=== PATIENT | male | born 1965 | race Two or more races ===

== ENCOUNTER 2023-01-01 13:38 | Inpatient (IN) | payer MEDICARE, OTHER ==
[~2023-01-01] VITALS: Ht 170.2 cm; Wt 64.4 kg
[2023-01-01] MEDS ORDERED: IV NS 0.9% 1,000 ML BAG IV ONE (14:00)
--- NOTE | 2023-01-01 14:42 | NUR ---
PT IN BED 6 A/O X3 NO S/S OF DISTRESS. C/O WEAKNESS HAVING TROUBLE WITH BOWEL EMPTYING AND POOR DIET PT ENDORSES FEELING NAUSEOUS 3 DAYS AGO. PT CONNECTED TO BEDISDE MONITOR AND PUT ON NS DRIP.
--- NOTE | 2023-01-01 14:45 | NUR ---
20G STARTED IN RAC BLOOD DRAWN AND SENT TO LAB
--- NOTE | 2023-01-01 14:46 | NUR ---
PT PROVIDED WITH URINAL AWAITING URINE SAMPLE.
[2023-01-01 14:51] LABS: BASOPHILS % (AUTO) 0.4 % (0.0-2.0); EOSINOPHILS % (AUTO) 2.2 % (0.0-6.0); HEMATOCRIT 43 % (39-51); LYMPHOCYTES # (AUTO) 1.9 K/uL (0.8-4.8); LYMPHOCYTES % (AUTO) 20.2 % (20.0-44.0); MEAN CORPUSCULAR HGB CONC 33 g/dl (31.0-36.0); MEAN CORPUSCULAR VOLUME 95 fL (80-96); MONOCYTES # (AUTO) 0.7 K/uL (0.1-1.30); NEUTROPHILS # (AUTO) 6.6 K/uL (1.8-8.9); NEUTROPHILS % (AUTO) 70.2 % (43.0-81.0); PLATELET COUNT (AUTO) 249 K/uL (150-450); RED BLOOD CELL COUNT(AUTO) 4.46 MIL/uL (4.5-6.0); WHITE BLOOD COUNT (AUTO) 9.4 K/uL (4.3-11.0)
--- NOTE | 2023-01-01 14:57 | NUR ---
COVID SWAB COLLECTED AND SENT TO LAB
[2023-01-01 15:12] LABS: ALBUMIN 3.8 g/dL (3.4-5.0); BILIRUBIN,DIRECT 0.1 mg/dL (0.0-0.2); BILIRUBIN,TOTAL 0.4 mg/dL (0.2-1.0); CALCIUM, SERUM 8.9 mg/dL (8.5-10.1); CREATININE 1.4 mg/dL (0.6-1.3); POTASSIUM 3.8 mmol/L (3.5-5.1); TOTAL PROTEIN, SERUM 7.1 g/dL (6.4-8.2)
--- NOTE | 2023-01-01 15:43 | NUR ---
CALLED KIMBERLY HERNANDEZ REGARDING PT BED
--- NOTE | 2023-01-01 15:51 | NUR ---
MSRA SWAB DONE SENT TO LAB
--- NOTE | 2023-01-01 16:10 | NUR ---
URINE COLLECTED SENT TO LAB
--- NOTE | 2023-01-01 16:10 | NUR ---
urine collected and sent to lab.
--- NOTE | 2023-01-01 16:11 | NUR ---
covid swab collected and sent to lab
--- NOTE | 2023-01-01 16:20 | NUR ---
PT GIVEN SOME FOOD COKE IN CANS AND SANDWICH
--- NOTE | 2023-01-01 16:32 | NUR ---
BED GIVEN 309-2
--- NOTE | 2023-01-01 16:42 | NUR ---
PT SAILAJA ESPINOSA RN BED 309 FOR CONTINUATION OF CARE
[2023-01-01 16:58] LABS: BILIRUBIN,URINE NEGATIVE (NEGATIVE); COLOR,URINE YELLOW (YELLOW); LEUKOCYTE ESTERASE ,URINE NEGATIVE (NEGATIVE); NITRITE, URINE NEGATIVE (NEGATIVE); PROTEIN,URINE NEGATIVE (NEGATIVE); UGLUCOSE NEGATIVE (NEGATIVE); UROBILINOGEN,URINE 0.2 EU/dL (0.2)
[2023-01-01] MEDS ORDERED: MAGNESIUM HYDROXIDE 30 ML UDC PO PRN (17:30)
[2023-01-01] MEDS ORDERED: HYDROCODONE/APAP 5/325MG TABLET PO PRN (17:30)
[2023-01-01] MEDS ORDERED: Z GUARD REMEDY 4 OZ OINT TP PRN (17:30)
[2023-01-01] MEDS ORDERED: ACETAMINOPHEN 325 MG TABLET PO PRN (17:30)
[2023-01-01] MEDS ORDERED: ONDANSETRON HCL/PF 4 MG/2 ML VIAL IVP PRN (17:30)
[2023-01-01] MEDS ORDERED: MAG HYDROX/AL HYDROX/SIMETH 30 ML UDC PO PRN (17:30)
--- NOTE | 2023-01-01 17:43 | NUR ---
MS AVICULTURIST NOTE (3 WEST) Patient arrived to Room 309 - bed 2, via gurney from the ED, alert, oriented x 2 with confusion, calm, cooperative, able to make needs known with clear speech, follows commands. Patient oriented to unit and safety protocols. Safety from fall precautions in place: bed in lowest position; two bed side rails up; bed brake locked on; bed alarm on; call bernal/light within patient's reach. Patient breathing is even, regular without distress,on room air, denies pain at the moment, and VS stable. Patient has # 20 gauge PIV catheter to right antecubital space that is clean, dry, intact, and patent flushing without resistance. New order for IV fluid of 1/2 NS to infuse at rate of 75 mLs/hr, will connect to patient. Will continue to monitor and care for patient per MD POC.
[2023-01-01 17:49] LABS: CHOLESTEROL 149 mg/dL (<200); HDL CHOLESTEROL 44 mg/dL (40-60); LDL 88 mg/dL (0-99); TRIGLYCERIDES 212 mg/dL (30-150)
[2023-01-01] MEDS ORDERED: LEVO50TA8 PO (17:55)
[2023-01-01] MEDS ORDERED: ACET-868 PO (17:55)
[2023-01-01] MEDS ORDERED: BISA10SU11 RC (17:55)
[2023-01-01] MEDS ORDERED: NA P133E RC (17:55)
[2023-01-01] MEDS ORDERED: OLAN15TA3 PO (17:55)
[2023-01-01] MEDS ORDERED: DIVA500T2 PO (17:55)
[2023-01-01] MEDS ORDERED: QUET300T2 PO (17:55)
[2023-01-01] MEDS ORDERED: BUSP10TA3 PO (17:55)
[2023-01-01] MEDS ORDERED: MAGN400O6 PO (17:55)
[2023-01-01] MEDS ORDERED: FINA5TAB4 PO (17:55)
[2023-01-01] MEDS: IV 1/2NS 1000 ML 1,000 ML IV PRN (18:48)
--- NOTE | 2023-01-01 18:51 | NUR ---
MS RN CLOSING NOTE (DAY SHIFT) PATIENT IN BED AWAKE, BREATHING EVENLY AND UNLABORED. PATIENT HAD GOOD APPETITE, ATE 100% OF DINNER MEAL AND DRANK 480 MlS OF FLUID. A/O X 2 WITH EPISODES OF CONFUSION. IV ACCESS ON RIGHT AC #20 IS STILL PATENT AND INTACT. INFUSING 0.45 NS @ 75CC/HR. PATIENT ON ROOM AIR TOLERATING WELL. NO COMPLAINTS OF PAIN NOR DISCOMFORT AT THIS TIME. MADE SURE PATIENT IS KEPT CLEAN AND COMFORTABLE. SAFETY MEASURES IN PLACE: BED LOCKED AND IN LOWEST POSITION; BED BRAKES LOCKED ON; TWO BED SIDE RAILS UP; BED IN LOWEST POSITION; AND CALL LIGHT AND BEDSIDE TABLE WITHIN PATIENT'S REACH. WILL ENDORSE TO SHIP JOINER NURSE FOR CONTINUITY OF CARE.
--- NOTE | 2023-01-01 19:05 | NUR ---
309-2 MS RN OPENING NOTE RECEIVED PATIENT IN BED SLEEPING BREATHING EVENLY AND UNLABORED. A/O X2 WITH EPISODES OF CONFUSION. IV ACCESS ON RIGHT AC #20 NOTED TO BE PATENT AND INTACT. INFUSING 0.45 NS @ 75CC/HR. PATIENT ON ROOM AIR TOLERATING WELL. NO COMPLAINS OF PAIN AND DISCOMFORT AT THIS TIME. SAFETY MEASURE IN PLACED; BED LOCKED AND IN LOWEST POSITION, CALL LIGHT AND BEDSIDE TABLE WITHIN PATIENT REACH.
[2023-01-01 20:23] VITALS: BP 103/74
[2023-01-02 06:28] LABS: BASOPHILS % (AUTO) 0.4 % (0.0-2.0); HEMATOCRIT 39 % (39-51); HEMOGLOBIN 12.9 g/dL (13.5-17.5); LYMPHOCYTES # (AUTO) 2.1 K/uL (0.8-4.8); LYMPHOCYTES % (AUTO) 25.7 % (20.0-44.0); MEAN CORPUSCULAR HGB CONC 33 g/dl (31.0-36.0); MEAN CORPUSCULAR VOLUME 95 fL (80-96); MONOCYTES # (AUTO) 0.7 K/uL (0.1-1.30); MONOCYTES % (AUTO) 9.3 % (2.0-12.0); NEUTROPHILS # (AUTO) 4.9 K/uL (1.8-8.9); NEUTROPHILS % (AUTO) 61.6 % (43.0-81.0); PLATELET COUNT (AUTO) 236 K/uL (150-450); RED BLOOD CELL COUNT(AUTO) 4.05 MIL/uL (4.5-6.0)
[2023-01-02 06:56] LABS: THYROID STIMULATING HORMONE 2.126 uIU/mL (0.358-3.74)
--- NOTE | 2023-01-02 06:58 | NUR ---
MS RN CLOSING NOTE PATIENT IN BED SLEEPING BREATHING EVENLY AND UNLABORED. A/O X2 WITH EPISODES OF CONFUSION. IV ACCESS ON RIGHT AC #20 NOTED TO BE PATENT AND INTACT. INFUSING 0.45 NS @ 75CC/HR. PATIENT ON ROOM AIR TOLERATING WELL. NO COMPLAINS OF PAIN AND DISCOMFORT AT THIS TIME. ALL DUE MEDICATION IS GIVEN ORDERED. MADE SURE PATIENT IS KEPT CLEAN AND COMFORTABLE. SAFETY MEASURE IN PLACED; BED LOCKED AND IN LOWEST POSITION, CALL LIGHT AND BEDSIDE TABLE WITHIN PATIENT REACH. WILL ENDORSE TO NEXT SHIFT FOR CONTINUITY OF CARE.
[2023-01-02 07:08] LABS: CALCIUM, SERUM 8.4 mg/dL (8.5-10.1); CREATININE 1.4 mg/dL (0.6-1.3); MAGNESIUM 1.9 mg/dL (1.8-2.4); PHOSPHORUS 2.7 mg/dL (2.5-4.9); POTASSIUM 3.9 mmol/L (3.5-5.1)
--- NOTE | 2023-01-02 07:30 | NUR ---
MS RN OPENING NOTE PATIENT IN BED AWAKE . A/O X2 WITH EPISODES OF CONFUSION. IV ACCESS ON RIGHT AC #20 SL . ON ROOM AIR WITH NO SOB OR DISTRESS . NO C/O OF PAIN AND DISCOMFORT AT THIS TIME. . SAFETY MEASURE IN PLACED; BED LOCKED AND IN LOWEST POSITION, CALL LIGHT AND BEDSIDE TABLE WITHIN PATIENT REACH. WILL ENDORSE TO NEXT SHIFT FOR CONTINUITY OF CARE.
[2023-01-02] MEDS: PANTOPRAZOLE 40 MG TABLET.DR PO SCH (08:28)
[2023-01-02 16:13] VITALS: BP 117/86
--- NOTE | 2023-01-02 18:45 | NUR ---
MS RN CLOSING NOTE PATIENT IN BED AWAKE . A/O X2 WITH EPISODES OF CONFUSION. IV ACCESS ON RIGHT AC #20 SL . ON ROOM AIR WITH NO SOB OR DISTRESS . NO C/O OF PAIN AND DISCOMFORT AT THIS TIME. ALL DUE MEDS ORDERED , SEEN BY REHAB - PT AND ABLE OT AMBULATE WITH ASSIST , SAFETY MEASURE IN PLACED; BED LOCKED AND IN LOWEST POSITION, CALL LIGHT AND BEDSIDE TABLE WITHIN PATIENT REACH. WILL ENDORSE TO NEXT SHIFT .
--- NOTE | 2023-01-02 19:40 | NUR ---
MS RN OPENING NOTE RECEIVED PATIENT IN BED; AWAKE, ALERT AND ORIENTED X 2 WITH EPISODES OF CONFUSION. ON ROOM AIR; TOLERATING WELL. BREATHING EVEN AND NONLABORED. NO S/S OF PAIN OR DISCOMFORT NOTED AT THIS TIME. WITH IV ACCESS ON RIGHT HAND 20g; PATENT, INTACT AND SALINE LOCKED. SAFETY PRECAUTIONS IMPLEMENTED: CALL LIGHT AND TABLE WITHIN REACH, SIDE RAILS UP X 2, BED IN LOWEST LOCKED POSITION. WILL CONTINUE TO MONITOR THROUGHOUT SHIFT.
[2023-01-02 20:00] VITALS: BP 106/71
[2023-01-02] MEDS: IV 1/2NS 1000 ML 1,000 ML IV PRN (22:26)
--- NOTE | 2023-01-03 06:55 | NUR ---
MS RN CLOSING NOTE PATIENT IN BED; AWAKE, A/O X 2 WITH EPISODES OF CONFUSION. STABLE ON ROOM AIR. DENIES ANY PAIN OR DISCOMFORT. WITH IV ACCESS ON RIGHT HAND 20g; PATENT, INTACT AND SALINE LOCKED. SAFETY PRECAUTIONS MAINTAINED: CALL LIGHT AND TABLE WITHIN EASY REACH, SIDE RAILS UP X 2, BED IN LOWEST LOCKED POSITION. ENDORSED TO MORNING SHIFT FOR ANICETO.
[2023-01-03] MEDS: PANTOPRAZOLE 40 MG TABLET.DR PO SCH ×2 (07:30→07:59)
--- NOTE | 2023-01-03 07:40 | NUR ---
MS RN OPENING NOTE RECEIVED PATIENT IN BED; AWAKE, ALERT AND ORIENTED X 2 WITH EPISODES OF CONFUSION. ON ROOM AIR; TOLERATING WELL. BREATHING EVEN AND NONLABORED. NO S/S OF PAIN OR DISCOMFORT NOTED AT THIS TIME. IV ACCESS WAS REMOVED BY THE PATIENT OFFERED TO BE INSERTED AND REFUSED . SAFETY PRECAUTIONS IMPLEMENTED: CALL LIGHT AND TABLE WITHIN REACH, SIDE RAILS UP X 2, BED IN LOWEST LOCKED POSITION. WILL CONTINUE TO MONITOR THROUGHOUT SHIFT.
--- NOTE | 2023-01-03 13:00 | NUR ---
RN NOTES OFFERED IV INSERTION AND PATIENT REFUSED , AWARE
--- NOTE | 2023-01-03 15:41 | NUR ---
RN NOTES PATIENT OFFERED FOR IV ACCESS AND STILL REFUSING
--- NOTE | 2023-01-03 19:00 | NUR ---
RN OPENING NOTE RECEIVED PT AWAKE IN BED. PT IS A/OX2, ABLE TO MAKE NEEDS KNOWN. PT IS IN RA TOLERATING WELL, BREATHING EVEN AND UNLABORED @ THIS TIME. NO IV PRESENT D/T PT REFUSED. PT IS AMBULATORY W/ BRP W/ ASSIST. SAFETY MEASURE IN PLACE. BED IN LOWEST AND LOCKED POSITION. SIDE RAILS X 2. BEDSIDE TABLE AND CALL LIGHT IS EASY REACH. BED ALARM IS ON. WILL MONITOR PT ACCORDINGLY.
--- NOTE | 2023-01-03 19:00 | NUR ---
RN OPENING NOTE RECEIVED PT AWAKE IN BED. PT IS A/OX4, ABLE TO MAKE NEEDS KNOWN. PT IS IN RA TOLERATING WELL, BREATHING EVEN AND UNLABORED @ THIS TIME. PT IV PRESENT ON LEFT FOREARM, PATENT, INTACT AND FLUSHES WELL, W/ NO S &SX OF INFILTRATION @ SITE NOTED. PT WALKER & URINAL @ BEDSIDE AND WITHIN REACH. SAFETY MEASURE IN PLACE. BED IN LOWEST AND LOCKED POSITION. SIDE RAILS X 2. BEDSIDE TABLE AND CALL LIGHT IS EASY REACH. BED ALARM IS ON. WILL MONITOR PT ACCORDINGLY.
--- NOTE | 2023-01-03 19:39 | NUR ---
MS RN CLOSING NOTE PATIENT IN BED; AWAKE, ALERT AND ORIENTED X 2 WITH EPISODES OF CONFUSION. ON ROOM AIR; TOLERATING WELL. BREATHING EVEN AND NONLABORED. NO S/S OF PAIN OR DISCOMFORT NOTED AT THIS TIME. IV ACCESS WAS REMOVED BY THE PATIENT OFFERED 3X TO BE INSERTED AND REFUSED . SAFETY PRECAUTIONS IMPLEMENTED: ALL DUE MEDS GIVEN ORDERED , CALL LIGHT AND TABLE WITHIN REACH, SIDE RAILS UP X 2, BED IN LOWEST LOCKED POSITION. ENDORSED TO NEXT SHIFT .
--- NOTE | 2023-01-04 06:36 | NUR ---
RN CLOSING NOTE PT IS AWAKE AND RESTING COMFORTABLY IN BED. PT IS A/OX2,RESPONSIVE AND FOLLOWS VERBAL COMMAND. PT IS IN RA W/ NO S &SX OF RESPIRATORY DISTRESS @ THIS TIME. NO IV PRESENT D/T PT REFUSED. PT IS AMBULATORY W/ BRP & ASSIST. SAFETY MEASURE IN PLACE. BED IN LOWEST AND LOCKED POSITION. SIDE RAILS X 2. BEDSIDE TABLE AND CALL LIGHT IS EASY REACH. BED ALARM IS ON. WILL ENDORSE PT TO THE NEXT SHIFT FOR ANICETO.
[2023-01-04 07:00] VITALS: BP 108/70
--- NOTE | 2023-01-04 07:54 | NUR ---
MS RN OPENING NOTE RECEIVED PATIENT IN BED; AWAKE, ALERT AND ORIENTED X 2 WITH EPISODES OF CONFUSION. ON ROOM AIR; TOLERATING WELL. BREATHING EVEN AND NONLABORED. NO S/S OF PAIN OR DISCOMFORT NOTED AT THIS TIME. NO IV ACCESS PATIENT REFUSED TO BE REINSERTED . SAFETY PRECAUTIONS IMPLEMENTED: CALL LIGHT AND TABLE WITHIN REACH, SIDE RAILS UP X 2, BED IN LOWEST LOCKED POSITION. WILL CONTINUE TO MONITOR THROUGHOUT SHIFT.
[2023-01-04 16:00] VITALS: BP 116/75
--- NOTE | 2023-01-04 18:55 | NUR ---
MS RN CLOSING NOTE PATIENT IN BED; AWAKE, ALERT AND ORIENTED X 2 WITH EPISODES OF CONFUSION. ON ROOM AIR; TOLERATING WELL. BREATHING EVEN AND NONLABORED. NO S/S OF PAIN OR DISCOMFORT NOTED AT THIS TIME. NO IV ACCESS PATIENT REFUSED TO BE REINSERTED . ALL DUE MEDS ORDERED , DISCHARGE PALN ORDERED GOING BACK TO SNF , CM AWARE SAFETY PRECAUTIONS IMPLEMENTED: CALL LIGHT AND TABLE WITHIN REACH, SIDE RAILS UP X 2, BED IN LOWEST LOCKED POSITION. ENDORSED TO NEXT SHIFT
--- NOTE | 2023-01-04 19:00 | NUR ---
RN OPENING NOTE RECEIVED PT AWAKE IN BED. A/O X 2, ABLE TO MAKE NEEDS KNOW. PT IS IN RA TOLERATING WELL, BREATHING EVEN AND UNLABORED @ THIS TIME. PT [place] NO IV PRESENT, PT REFUSED. PT IS AMBULATORY W/ BRP & ASSIST. SAFETY MEASURE IS IN PLACE. BED IN LOWEST AND LOCKED POSITION. SIDE RAILS X 3. BEDSIDE TABLE AND CALL LIGHT IS EASY REACH. BED ALARM IS ON. WILL CONTINUE TO MONITOR PT ACCORDINGLY.
[2023-01-04 20:00] VITALS: BP 116/80
--- NOTE | 2023-01-05 06:40 | NUR ---
RN CLOSING NOTE PT IS ASLEEP AND RESTING COMFORTABLY IN BED. A/O X 2, RESPONSIVE AND FOLLOWS VERBAL COMMAND. PT IS IN RA W/ NO S & SX OF RESPIRATORY DISTRESS @ THIS TIME. PT [place] NO IV PRESENT. PT IS KEPT CLEAN AND DRY. SAFETY MEASURE IS IN PLACE. BED IN LOWEST AND LOCKED POSITION. SIDE RAILS X 3. BEDSIDE TABLE AND CALL LIGHT IS EASY REACH. BED ALARM IS ON. WILL ENDORSE PT TO THE NEXT SHIFT FOR ANICETO.
[2023-01-05] MEDS: PANTOPRAZOLE 40 MG TABLET.DR PO SCH (07:30)
--- NOTE | 2023-01-05 07:44 | NUR ---
MS RN OPENING NOTE RECEIVED PATIENT IN BED; AWAKE, ALERT AND ORIENTED X 2 WITH EPISODES OF CONFUSION. ON ROOM AIR; TOLERATING WELL. BREATHING EVEN AND NONLABORED. NO S/S OF PAIN OR DISCOMFORT NOTED AT THIS TIME. NO IV ACCESS PATIENT REFUSED TO BE REINSERTED AND DISCHARGED IS PLANNED FOR TODAY. SAFETY PRECAUTIONS IMPLEMENTED: CALL LIGHT AND TABLE WITHIN REACH, SIDE RAILS UP X 2, BED IN LOWEST LOCKED POSITION. WILL CONTINUE TO MONITOR AND CARE FOR PATIENT PER MD POC..
[2023-01-05 08:00] VITALS: BP 106/68
--- NOTE | 2023-01-05 13:20 | NUR ---
MS HOSEMAN NOTE (DAY SHIFT) Patient's vital signs were stable, no signs of distress, calm, cooperative and has good appetite at meals. Report given to nurse at [facility], Room 19. Patient departed from the [facility] at 13:00 hrs via ambulance gurney to ambulance bound for the [facility].
== END 2023-01-05 12:55 | DRG 641 ==
LOC: ER 13:59 → MED 17:20
DX: R62.7 Adult failure to thrive (principal); I13.0 Hypertensive heart and chronic kidney disease with heart failure and stage 1 through stage 4 chronic kidney disease, or unspecified chronic kidney disease; G93.40 Encephalopathy, unspecified; E03.9 Hypothyroidism, unspecified; I50.9 Heart failure, unspecified; J44.9 Chronic obstructive pulmonary disease, unspecified; N18.30 Chronic kidney disease, stage 3 unspecified; F25.0 Schizoaffective disorder, bipolar type; Z20.822 Contact with and (suspected) exposure to COVID-19; N40.0 Benign prostatic hyperplasia without lower urinary tract symptoms; R13.10 Dysphagia, unspecified; F41.9 Anxiety disorder, unspecified; G90.9 Disorder of the autonomic nervous system, unspecified; Z79.899 Other long term (current) drug therapy
CPT/HCPCS: 36415; 71045-TC; 80048-TC; 80061-TC; 80076-TC; 82962-TC; 83735-TC; 84100-TC; 84443-TC; 85025-TC; 85730-TC; 87081-TC; 97112-TC; 97116-TC; 97530-TC; A4223; C9803; G0378; J3490